=== PATIENT | male | born 1960 | race Caucasian/White ===

== ENCOUNTER 2017-03-12 09:32 | Outpatient (CLI) | payer BC, OTHER ==
--- NOTE | 2017-03-13 10:34 | PET Report ---
PET/CT:03/12/17 09:32:00 CLINICAL: Colon cancer staging. RADIOPHARMACEUTICAL: 13.42mCi F18-FDG. COMPARISON: 02/20/17 CT abdomen and pelvis TECHNIQUE- Following intravenous injection of F-18 FDG and an approximately 60 minute uptake period, CT and PET images from the mid skull to the upper thighs were acquired with the patient in the fasted state. No contrast was administered. The CT protocol used for this PET CT study is designed for attenuation correction and anatomic localization of PET abnormalities. 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 Plasma glucose at the time of this test: 103g/dl. The standardized uptake values (SUV) are normalized to patient body weight and indicate the highest activity concentration (SUV max) in a given disease site. FINDINGS: Brain--Physiologic FDG uptake in the visualized regions of the brain. Neck--Physiologic FDG uptake . Chest--Physiologic FDG uptake in mediastinal blood pool and myocardium. Lungs/pleura/pericardium--There is a large left pneumothorax with minimal tension, a moderate size left pleural effusion and partial collapse of the left lower lobe. No pulmonary nodule or mass. No abnormal uptake. A small right pleural effusion. Thoracic nodes--No abnormal uptake. Hepatobiliary--No abnormal uptake. Liver background SUV mean, as a reference for comparing FDG studies, is 2.3 . Multifocal FDG uptake. The greatest uptake is within a heterogeneous right lobe mass that correlates with the known cancer. It measures 13 cm in greatest dimension with SUV of 6.97. An additional right hepatic mass with SUV 7.6. Bile ducts are normal. Spleen--No abnormal uptake. Pancreas--No abnormal uptake. Adrenal Glands--No abnormal uptake. Kidneys/Ureters/Bladder--No abnormal uptake. Moderate right hydronephrosis with a stent in place. Abdominopelvic Nodes--an FDG avid enlarged right internal iliac lymph node measures 2.0 x 1.9 cm with SUV 11.3. No other suspicious lymph nodes. Bowel/Peritoneum/Mesentery--Moderate ascites. No abnormal uptake. Left lower quadrant colostomy. Pelvic organs--FDG avid rectal mass measures approximately 8.3 cm in length. The thickened wall measures 2.3 cm with SUV 16.8. Bones/Soft Tissues--No abnormal uptake. IMPRESSION- 1. A large left pneumothorax with minimal tension, partial collapse of the left lower lobe and a moderate size left pleural effusion. I spoke to the patient and the patient's daughter and they are going to the emergency room now (03/13/17 at 10:28). He is apparently asymptomatic with the pneumothorax. 2. 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 No evidence of pulmonary metastasis.
== END 2017-03-12 09:33 | disposition home or self-care (01) ==
LOC: PET 09:32
PROVIDERS: ATTEND Internal Medicine Hematology & Oncology
DX: C78.7 Secondary malignant neoplasm of liver and intrahepatic bile duct (principal); C18.9 Malignant neoplasm of colon, unspecified; D49.0 Neoplasm of unspecified behavior of digestive system; J93.0 Spontaneous tension pneumothorax; J90 Pleural effusion, not elsewhere classified; J98.19 Other pulmonary collapse; R16.0 Hepatomegaly, not elsewhere classified; N13.30 Unspecified hydronephrosis; R59.9 Enlarged lymph nodes, unspecified; R18.8 Other ascites; K62.89 Other specified diseases of anus and rectum; Z93.3 Colostomy status
CPT/HCPCS: 78815; 82962; A9552

== ENCOUNTER 2017-03-16 14:08 | Outpatient (CLI) | payer BC, OTHER ==
--- NOTE | 2017-03-17 14:49 | Vascular Lab Report ---
LEFT UPPER EXTREMITY VENOUS DUPLEX: REASON FOR EXAM: Left arm swelling. COMMENTS ON THE LEFT: All arm veins visualized are freely compressible without evidence of internal echogenicity. The subclavian and internal jugular veins are free of thrombus. Flow is spontaneous and phasic throughout. Clot noted in the small portion of the cephalic vein in the antecubital fossa COMMENTS ON THE RIGHT: The subclavian and internal jugular veins are free of thrombus. IMPRESSION: . Superficial thrombophlebitis in the left upper extremity
== END 2017-03-16 14:09 | disposition home or self-care (01) ==
LOC: VAS 14:08
PROVIDERS: ATTEND Internal Medicine Hematology & Oncology
DX: I80.8 Phlebitis and thrombophlebitis of other sites (principal); R22.1 Localized swelling, mass and lump, neck; C18.9 Malignant neoplasm of colon, unspecified

== ENCOUNTER 2017-05-12 15:06 | Outpatient (CLI) | payer BC, OTHER | END 2017-05-12 15:07 | disposition home or self-care (01) | LOC: LABHHL 15:06 | PROVIDERS: ATTEND Internal Medicine Hematology & Oncology | DX: C20 Malignant neoplasm of rectum (principal); C78.7 Secondary malignant neoplasm of liver and intrahepatic bile duct; C18.9 Malignant neoplasm of colon, unspecified; D64.9 Anemia, unspecified; Z87.891 Personal history of nicotine dependence | CPT/HCPCS: 88341; 88342 ==

== ENCOUNTER 2017-05-25 09:25 | Outpatient (CLI) | payer BC ==
[2017-05-25 10:11] LABS: Blood Urea Nitrogen 17 mg/dL (9-20)
[2017-05-25] MEDS ORDERED: NACL ONE (10:18)
--- NOTE | 2017-05-25 14:23 | Cat Scan Report ---
CT scan of chest abdomen and pelvis: Compared to 02/20/17. History: Colon cancer. Findings: No endobronchial or mediastinal mass. No mediastinal, hilar or axillary adenopathy. Emphysematous changes in the lung parenchyma with bibasilar atelectasis. Bilateral pleural effusion. No discrete nodularity in the lung parenchyma. There is a large lobulated 4.7 cm hypodense mass in the left hepatic lobe an approximate 14 cm hypodense mass in the right anterior lobe of the liver. Several other less well defined small mass is also present in the right hepatic lobe. No significant interval change. Stable right ureteral stent. No interval change in the kidney parenchyma compared to previous study. There is marked increase in ascitic fluid noted in the abdomen compared to previous study. There is evidence of colostomy with mildly dilated loops of small bowel with gaseous colon and stool in colon. There is also noted left lower quadrant ostomy. The previously noted enlarged lymph nodes are not optimally visualized the present study. No obvious lytic or blastic bony metastases. Impression: No significant change in metastatic liver disease. Marked increase in ascitic fluid. Additional findings as detailed above without significant interval change.
== END 2017-05-25 09:26 | disposition home or self-care (01) ==
LOC: CT 09:25
PROVIDERS: ATTEND Internal Medicine Hematology & Oncology
DX: C78.7 Secondary malignant neoplasm of liver and intrahepatic bile duct (principal); C18.9 Malignant neoplasm of colon, unspecified; J98.11 Atelectasis; J90 Pleural effusion, not elsewhere classified; K76.89 Other specified diseases of liver; Z93.3 Colostomy status; Z87.891 Personal history of nicotine dependence
CPT/HCPCS: 36415; 71260; 74177; 82565; 84520; Q9967